=== PATIENT | female | born 1960 | race Caucasian/White ===

== ENCOUNTER 2016-09-08 19:43 | Emergency (ER) | payer SELFPAY ==
[2016-09-08] MEDS ORDERED: ONDANSETRON INJ 4 MG/2 ML VIAL IV ONE (19:59)
[2016-09-08] MEDS ORDERED: KETOROLAC TROMETHAMINE INJ 30 MG/ML VIAL IV ONE (20:10)
[2016-09-08] MEDS ORDERED: SODIUM CHLORIDE 0.9% 1000ML 1,000 ML IVS ONE (20:10)
--- NOTE | 2016-09-08 20:24 | ED.PDOC ---
History of Present Illness - General Chief Complaint: Abdominal Pain Stated Complaint: abdomen pain Time Seen by Provider: 09/08/16 20:09 Information Source: patient, RN notes reviewed, Vital Signs reviewed Exam Limitations: no limitations - History of Present Illness Initial Comments: Patient comes in with c/o RUQ/flank pain that started acutely ~ 1.5 hours prior to arrival. Pain is achy and sharp. + nausea and anorexia. Earlier in the day she was in her usual state of health. Abdominal Pain Onset Location: RUQ, flank - right Pain Radiation: flank - Right Quality: moderate, aching, sharpness, waxing/waning Timing/Duration: 1-3 hours Improving Factors: nothing Worsening Factors: nothing Associated Symptoms: diarrhea - Residual from gastroenteritis last week, nausea/ vomiting Review of Systems - Review of Systems Constitutional: States: no symptoms reported EENTM: States: no symptoms reported Respiratory: States: no symptoms reported Cardiology: States: no symptoms reported Gastrointestinal/Abdominal: States: see HPI Genitourinary: States: no symptoms reported Musculoskeletal: States: back pain - R flank Skin: States: no symptoms reported Neurological: States: no symptoms reported All other Systems: No Change from Baseline Past Medical History (General) - Patient Medical History Hx Asthma: No Hx Cardiac Disorders: No Hx Hypertension: No Hx Thyroid Disease: Yes - hypo Hx Diabetes: No - Vaccination History Hx Tetanus, Diphtheria Vaccination: No Hx Influenza Vaccination: No Hx Pneumococcal Vaccination: No - Social History Hx Tobacco Use: No - Female History Patient : No Family Medical History - Family History Mother Family History: Unknown Living Status: Unknown Physical Exam - Physical Exam General Appearance: Alert, Ill Appearing - in obvious pain, Well Developed, Well Groomed, Well Hydrated, Well Nourished Neck: non-tender, full range of motion, supple, normal inspection Respiratory: chest non-tender, lungs clear, normal breath sounds, no respiratory distress, no accessory muscle use Cardiovascular/Chest: regular rate, rhythm, no edema, no gallop, no JVD, no murmur Gastrointestinal/Abdominal: soft, abnormal bowel sounds - decreased, tenderness - RUQ w/o rebound or guarding Back Exam: CVA tenderness (R) Extremity: normal inspection Neurologic: alert, normal mood/affect, oriented x 3 Skin Exam: normal color, warm/dry Comments: Vital Signs 09/08/16 09/08/16 19:50 20:07 Temperature 98.6 F Pulse Rate [ 108 H 108 H right radial] Respiratory 22 22 Rate Blood Pressure 142/82 [Right Arm] O2 Sat by Pulse 98 Oximetry Progress - Progress Progress: 09/08/16 21:23 Pain is improved. Will d/c home with Rx for Toradol since she is allergic to Codeine and Hydrocodone. Discussed increased risk of GI bleeding and to use judiciously and take with food. - Results/Orders Results/Orders: Laboratory Last Values WBC 10.5 K/mm3 (4.8-10.8) 09/08/16 20:05 RBC 4.94 M/mm3 (4.20-5.40) 09/08/16 20:05 Hgb 13.0 gm/dL (12.0-16.0) 09/08/16 20:05 Hct 39.8 % (36.0-47.0) 09/08/16 20:05 MCV 80.5 fl (81.0-99.0) L 09/08/16 20:05 MCH 26.3 pg (27.0-31.0) L 09/08/16 20:05 MCHC 32.7 g/dL (33.0-37.0) L 09/08/16 20:05 RDW 13.4 % (11.5-14.5) 09/08/16 20:05 Plt Count 394 K/mm3 (130-400) 09/08/16 20:05 MPV 7.9 fl (7.40-10.4) 09/08/16 20:05 Absolute Neuts (auto) 5.70 K/uL (1.8-6.8) 09/08/16 20:05 Absolute Lymphs (auto) 3.50 K/uL (1.0-3.4) H 09/08/16 20:05 Absolute Monos (auto) 1.30 K/uL (0.2-0.8) H 09/08/16 20:05 Absolute Eos (auto) 0.10 K/uL (0.0-0.4) 09/08/16 20:05 Absolute Basos (auto) 0.00 K/uL (0.0-0.1) 09/08/16 20:05 Neutrophils % 53.9 % (42.0-78.0) 09/08/16 20:05 Lymphocytes % 33.0 % (20.0-50.0) 09/08/16 20:05 Monocytes % 11.9 % (2.0-9.0) H 09/08/16 20:05 Eosinophils % 0.8 % (1.0-5.0) L 09/08/16 20:05 Basophils % 0.4 % (0.0-2.0) 09/08/16 20:05 Sodium 141 mmol/L (135-145) 09/08/16 20:05 Potassium 3.7 mmol/L (3.6-5.0) 09/08/16 20:05 Chloride 106 mmol/L (101-111) 09/08/16 20:05 Carbon Dioxide 25 mmol/L (21-31) 09/08/16 20:05 Anion Gap 13.7 (12-18) 09/08/16 20:05 BUN 16 mg/dL (7-18) 09/08/16 20:05 Creatinine 0.78 mg/dL (0.6-1.3) 09/08/16 20:05 BUN/Creatinine Ratio 20.5 (10-20) H 09/08/16 20:05 Random Glucose 108 mg/dL (70-105) H 09/08/16 20:05 Serum Osmolality 283.0 mOsm/L (275-295) 09/08/16 20:05 Calcium 9.9 mg/dL (8.4-10.2) 09/08/16 20:05 Total Bilirubin 0.8 mg/dL (0.2-1.0) 09/08/16 20:05 AST 32 IU/L (10-42) 09/08/16 20:05 ALT 27 IU/L (10-60) 09/08/16 20:05 Alkaline Phosphatase 81 IU/L (42-121) 09/08/16 20:05 Serum Total Protein 7.6 gm/dL (6.4-8.2) 09/08/16 20:05 Albumin 4.5 g/dl (3.2-5.5) 09/08/16 20:05 Globulin 3.1 gm/dL (2.3-3.5) 09/08/16 20:05 Albumin/Globulin Ratio 1.5 (1.1-1.9) 09/08/16 20:05 Amylase 91 U/L (28-100) 09/08/16 20:05 Lipase 40 U/L (22-51) 09/08/16 20:05 Urine Color Yellow (Yellow) 09/08/16 20:10 Urine Appearance Clear (Clear) 09/08/16 20:10 Urine pH 5.5 (4.5-7.8) 09/08/16 20:10 Ur Specific [place] >= 1.030 (1.005-1.030) 09/08/16 20:10 Urine Protein Negative mg/dL 09/08/16 20:10 Urine Glucose (UA) Negative mg/dL (Negative) 09/08/16 20:10 Urine Ketones Negative mg/dL (NEGATIVE) 09/08/16 20:10 Urine Blood Small (Negative) H 09/08/16 20:10 Urine Nitrite Negative 09/08/16 20:10 Urine Bilirubin Negative (NEGATIVE) 09/08/16 20:10 Urine Urobilinogen 0.2 mg/dL (0.2-1.0) 09/08/16 20:10 Ur Leukocyte Esterase Negative (Negative) 09/08/16 20:10 Urine RBC 1-3 /hpf 09/08/16 20:10 Urine WBC 1-3 /hpf 09/08/16 20:10 Ur Epithelial Cells 1-3 /hpf 09/08/16 20:10 Urine Bacteria Rare 09/08/16 20:10 Urine Mucus Small 09/08/16 20:10 - EKG/XRAY/CT EKG: Sinus, no ST T wave changes CT Ordered: Yes - R hydronephrosis and hydroureter, 2mm calculus in bladder. Departure - Departure Clinical Impression: Hydronephrosis of right kidney, Hydroureter on right, Kidney calculus Time of Disposition: 21:25 Disposition: Discharge to Home or Self Care Condition: Good Departure Forms: ED Discharge - Pt. Copy, Patient Portal Self Enrollment Instructions: DI for Kidney Stones Diet: resume usual diet, other - Increase water/fluid intake Activity: increase activity as tolerated Referrals: JUDY BARON IV, [facility] [Primary Care Provider] - 1-5 Days Prescriptions: Ketorolac Tromethamine [Toradol Tabs] 10 mg PO Q6HR PRN #10 tab PRN Reason: Moderate To Severe Pain Home Medications: Ambulatory Orders Thyroid [[place] Thyroid] 120 mg PO DAILY 05/03/16 Ketorolac Tromethamine [Toradol Tabs] 10 mg PO Q6HR PRN #10 tab 09/08/16
--- NOTE | 2016-09-08 20:51 | CT ---
EXAM: Abdoment/Pelvis w/o Contrast CLINICAL INDICATION: 55-year-old female with RIGHT upper quadrant/flank pain. History of cholecystectomy. COMPARISON: None. EXAMINATION: CT of the abdomen and pelvis was performed without intravenous or oral contrast. Multiplanar reformatted images were provided. This exam was performed according to our departmental dose optimization program which includes use of automated exposure control, adjustment of the mA and/or kV according to patient size and/or use of iterative reconstruction technique. FINDINGS: Evaluation of solid organ pathology is limited secondary to lack of intravenous contrast. Within these limitations, the following observations are made. Chest: Evaluation through the lung bases reveals no focal opacity, pleural effusion or pneumothorax. Heart size is within normal limits. No pericardial effusion. Abdomen and pelvis: The liver, pancreas, spleen, LEFT kidney and bilateral adrenal glands are within normal limits. Surgical clips at the level of the gallbladder fossa status post cholecystectomy. The RIGHT kidney reveals hydronephrosis and hydroureter to the level of the distal ureter secondary to 2 mm calculus present within the dependent bladder. The vessels are normal in caliber. No abdominopelvic lymph nodes are noted to be pathologically enlarged by CT measurement criteria. The bowel is within normal limits with extensive fecal debris present throughout the large bowel. There is no abnormal bowel wall thickness or bowel dilation. No free air. No free abdominopelvic fluid collections. The appendix is within normal limits. The osseous structures reveal degenerative change of the lower lumbar spine L4-5 and L5-S1 levels. IMPRESSION: 1. The RIGHT kidney reveals hydronephrosis and hydroureter to the level of the distal ureter secondary to 2 mm calculus present within the dependent bladder. Electronically signed by: Delores Morris MD 09/08/2016 8:49 PM CDT Workstation: [id number]
[2016-09-08] MEDS ORDERED: KETOROLAC TROMETHAMINE 10 MG TAB PO ONE (21:24)
[2016-09-08] MEDS ORDERED: HYDROmorphone HCL INJ 2 MG/ML VIAL IV ONE (21:31)
[2016-09-08 21:44] VITALS: BP 131/76; TEMP 98.4; O2SAT 99
== END 2016-09-08 21:45 | disposition home or self-care (01) ==
LOC: ER 19:43
DX: N13.2 Hydronephrosis with renal and ureteral calculous obstruction (principal); E03.9 Hypothyroidism, unspecified; Z88.6 Allergy status to analgesic agent
CPT/HCPCS: 36415; 74176; 80053; 81001; 82150; 83690; 85025; 93005; J1170; J1885; J2405; J7030

== ENCOUNTER → 2017-10-20 | Outpatient (CLI) | payer OTHER ==
--- NOTE | 2017-10-20 21:06 | CT ---
EXAM DESCRIPTION: Abdomen/Pelvis w/wo Contrast: Computed Tomography. CLINICAL HISTORY: ULCERATIVE COLITIS; ABDOMINAL PAIN COMPARISON: CT scan of the abdomen and pelvis without IV contrast 09/08/2016 TECHNIQUE: Spiral-axial scans at 5.0 x 5.0 mm intervals through the abdomen and pelvis before and after standard dose nonionic IV contrast. No oral contrast. Coronal and sagittal 2.0 mm reconstructions. 5 mm Delayed helical-axial scans, liver through the pubic symphysis. No adverse reactions. Total Exam DLP 1520.06 mGy - cm. This exam was performed according to our departmental CT dose-optimization program which includes automated exposure control, adjustment of the mA and/or kV according to patient size and/or use of iterative reconstruction technique; to reduce radiation dose to as low as reasonably achievable (ALARA). FINDINGS: Lung bases and pleura: Negative. Liver, Stomach, Spleen, Adrenal Glands: Stomach is well-distended. Solid organs are negative. Pancreas, Gallbladder, Ducts: Surgical clips in the gallbladder fossa. No fluid. Interval dilation of the common bile duct. Stable subcentimeter fatty lesion in the body of the pancreas near the head. Kidneys and Ureters: Unremarkable. Mesentery: Minimal to trace amount of stranding around the thickened wall segments of the colon as described below. No free air or free fluid. Aorta: Normal outer caliber and luminal caliber. Minimal atherosclerotic calcification. Small Bowel: Unremarkable. Terminal Ileum/Cecum: Normal caliber. Appendix not seen. Colon: Fecal material proximal. In the proximal mid transverse colon, is a 1.0 - 1.5 cm segment of thickened wall and narrowing of the lumen axial series 2, image 62. The outer wall diameter is 1.5 cm. Minimal density of the surrounding fat. Distal to the narrowing, Intermittent wall thickening and luminal narrowing is seen extending to the splenic flexure. Coronal series 601, image 49. In the descending colon, intermittent short and medium length segments of the same wall thickening, luminal narrowing, and outer wall diameter decrease. The sigmoid colon is redundant and the distal two thirds shows somewhat smooth eng with enhancement, thickening and luminal narrowing; the outer wall diameter is relatively consistent in these segments. Minimal dilation of the rectum in a symmetric thickening of the left wall. Minimal density of fat surrounding the narrowed segments with thickened eng of the descending colon and sigmoid. Pelvic Organs: Urinary bladder. Vaginal cuff unremarkable. Increased density in the fat surrounding the sigmoid segments as described above. No free fluid. Spine and Bony Pelvis: Spondylosis L4-5 and L5-S1. Abdominal Wall/Back Soft Tissues: Unremarkable. IMPRESSION: Multiple lesions are noted in the colon with mucosal thickening and enhancement, narrowing of the lumen, and overall narrowing of the outer diameter of the involved colon segments. Improvement is noted in the ascending colon and proximal transverse colon. Distal transverse colon is stable, and also in the descending colon. Disease appears to be progressing in the sigmoid colon. Eccentric wall thickening was noted in the rectum on the left on the prior study as well. Electronically signed by: Luis De Souza MD 10/20/2017 9:05 PM CDT
== END ==
LOC: CT 07:44
DX: K51.90 Ulcerative colitis, unspecified, without complications (principal); R10.84 Generalized abdominal pain

== ENCOUNTER → 2017-10-29 | Outpatient (CLI) | payer OTHER | LOC: LAB.O 11:05 | DX: K52.89 Other specified noninfective gastroenteritis and colitis (principal); R19.4 Change in bowel habit ==

== ENCOUNTER → 2017-11-21 | Outpatient (CLI) | payer OTHER | LOC: LAB.NP 09:18 | DX: A04.72 Enterocolitis due to Clostridium difficile, not specified as recurrent (principal) ==

== ENCOUNTER → 2019-02-28 | Outpatient (CLI) | payer OTHER ==
--- NOTE | 2019-03-01 11:35 | MRI ---
Study: MRI of the Left Shoulder. Indication: STRAIN OF MUSCLE OF LEFT SHOULDER Technique: Multiplanar, multi sequence MRI of the left shoulder was obtained without intravenous contrast. Comparison: None. Findings: Moderate hypertrophic AC joint osteoarthritis. Type I acromion with moderate lateral downsloping. Moderate volume subacromial/subdeltoid bursal fluid. High-grade supraspinatus and infraspinatus tendinosis with irregular low to intermediate grade interstitial tearing throughout both tendon insertions. Subtle areas of bursal surface extension suspected and the conjoined tendon insertion. No full-thickness rupture or significant tendon retraction. Subscapularis and teres minor tendons intact. Mild atrophy and grade 1 fatty infiltration rotator cuff musculature. Intracapsular long head biceps tendinosis. Circumferential labral truncation/degeneration. Minimal glenohumeral joint osteoarthritis. No acute fracture. Impression: Supraspinatus and infraspinatus tendinosis with irregular low to intermediate grade interstitial tearing throughout both tendon insertions and likely areas of bursal surface extension. Mild atrophy and grade 1 fatty infiltration rotator cuff musculature. Intracapsular long head biceps tendinosis. Circumferential labral truncation and degeneration. Minimal glenohumeral joint osteoarthritis. Moderate hypertrophic AC joint osteoarthritis. Moderate volume subacromial/subdeltoid bursal fluid. Electronically signed by: Hill Liu MD 03/01/2019 11:34 AM FIELD SERVICE CONSULTANT
== END ==
LOC: MRI 14:00
PROVIDERS: ATTEND Nurse Practitioner Family
DX: S46.912A Strain of unspecified muscle, fascia and tendon at shoulder and upper arm level, left arm, initial encounter (principal); M75.82 Other shoulder lesions, left shoulder; M75.22 Bicipital tendinitis, left shoulder; M62.512 Muscle wasting and atrophy, not elsewhere classified, left shoulder; M19.012 Primary osteoarthritis, left shoulder

== ENCOUNTER → 2019-05-03 | Outpatient (CLI) | payer OTHER ==
--- NOTE | 2019-05-03 13:00 | CT ---
EXAM DESCRIPTION: Abdomen/Pelvis w/Contrast CLINICAL HISTORY: 58 years Female, RLQ PAIN TECHNIQUE: This exam was performed according to our departmental dose-optimization program, which includes automated exposure control, adjustment of the mA and/or kV according to patient size and/or use of iterative reconstruction technique. COMPARISON: October 20, 2017 FINDINGS: Visualized lung bases are grossly unremarkable. Hepatic steatosis. No suspicious hepatic lesion. No biliary dilatation. Cholecystectomy. Portal vein is patent. The spleen, pancreas and adrenal glands are unremarkable. Symmetric renal parenchymal enhancement. No hydronephrosis. Unremarkable bladder. Scattered colonic diverticula without focal inflammatory change. No evidence of bowel obstruction. Normal appendix. Acute uncomplicated terminal ileitis. No adenopathy. No focal fluid collection. No free air. Normal caliber abdominal aorta. No acute or suspicious osseous abnormality. Scattered degenerative changes present. IMPRESSION: Acute uncomplicated terminal ileitis. Normal appendix. Electronically signed by: Ethan Walter MD 05/03/2019 12:58 PM CDT
== END ==
LOC: CT 12:15
PROVIDERS: ATTEND Physician Assistant
DX: K52.9 Noninfective gastroenteritis and colitis, unspecified (principal)

== ENCOUNTER → 2019-10-02 | Outpatient (CLI) | payer OTHER | LOC: GMAJ 17:02 | PROVIDERS: ATTEND Family Medicine | DX: Z00.00 Encounter for general adult medical examination without abnormal findings (principal) ==

== ENCOUNTER → 2019-10-22 | Outpatient (CLI) | payer OTHER ==
--- NOTE | 2019-10-23 16:37 | MAM ---
EXAM DESCRIPTION: 3D Screening BILATERAL : Digital Mammography. CLINICAL HISTORY: 58 years Female SCREENING . No complaints. No family history breast cancer. Menarche age 9. Childbirth age 22. Hysterectomy age 27. HRT 5 or more years ago.. Lifetime risk of developing breast cancer (Tyrer-Cuzick model)(%): 7.2. COMPARISON: 2-D digital screening bilateral mammography December 2014.. No prior reports available. TECHNIQUE: Bilateral CC and MLO projection full-field images, digital tomosynthesis mammographic technique. Bilateral digital 2-D full-field MLO images. CAD available for 2-D images. FINDINGS: The breast parenchymal density pattern is: Scattered areas of fibroglandular density. No skin thickening or nipple retraction. Small mass density incompletely circumscribed approximately 5 mm in diameter middle third of the upper-outer quadrant at 11:00-11:30, 5.8 cm from the nipple. No new focal, stellate mass or density, focal asymmetry , and no suspicious microcalcifications right breast. IMPRESSION: BI-RADS CATEGORY: 0 - INCOMPLETE- Need additional imaging evaluation. RECOMMENDATIONS: FOLLOW-UP: Recall for additional imaging: Directed left breast ultrasound region of interest. Optional diagnostic left breast tomosynthesis depending on ultrasound findings.. Written communication concerning the IMPRESSION and Follow-up, will be mailed to the patient and referring health care provider. Electronically signed by: Luis De Souza MD 10/23/2019 4:35 PM CDT
== END ==
LOC: MAMMO 15:22
PROVIDERS: ATTEND Family Medicine
DX: Z12.31 Encounter for screening mammogram for malignant neoplasm of breast (principal)

== ENCOUNTER → 2019-11-01 | Outpatient (CLI) | payer OTHER ==
--- NOTE | 2019-11-01 19:11 | US ---
EXAM DESCRIPTION: Breast,Left: Ultrasound. CLINICAL HISTORY: 58 yearsFemaleOTHER ABNORMAL AND INCONCLUSIVE FINDINGS ON DX IMAGING BREAST small mass density left breast COMPARISON: Bilateral screening digital breast tomosynthesis October 21. TECHNIQUE: Transcutaneous scanning of the left breast utilizing ledesma-scale and Doppler modes. Scanning performed by the director employee safety and health ; observation by Dr. De Souza. FINDINGS: Scanning 6 cm from the nipple at the 11:00 region. Small hypoechoic structure with echogenic margin. Wider than tall orientation with mixed posterior acoustic enhancement. Nonvascular. Dimensions are 5.6 x 4.5 mm. Consistent with a lymph node. No distinct cyst or dominant solid mass. No fluid collection or large calcifications. No overlying skin changes. IMPRESSION: Benign exam. BIRAD CATEGORY: 2 BENIGN FINDINGS. RECOMMENDATIONS: FOLLOW UP: Routine digital bilateral mammographic screening, one year interval from October 2019. Written communication explaining the IMPRESSION and follow-up, will be mailed to the patient and referring health care provider. The FINDINGS and the FOLLOW-UP plan were reviewed in person with the patient after the examination. According to the [employer], yearly mammograms are recommended starting at age 40 and continuing as long as a woman is in good health. Any breast change noted on a breast self-exam should be reported promptly to the patient's healthcare provider. Breast MRI is recommended for women with an approximately 20-25% or greater lifetime risk of breast cancer, including women with a strong family history of breast or ovarian cancer and women who have been treated for Hodgkin's disease. A negative mammographic report should not delay tissue diagnosis in patients with significant clinical history or physical findings. Extremely dense breast tissue limits the sensitivity of digital mammography. Electronically signed by: Luis De Souza MD 11/01/2019 7:09 PM CDT
== END ==
LOC: US 09:03
PROVIDERS: ATTEND Family Medicine
DX: R92.8 Other abnormal and inconclusive findings on diagnostic imaging of breast (principal)

== ENCOUNTER → 2019-11-29 | Outpatient (CLI) | payer OTHER | LOC: LAB.O 09:11 | PROVIDERS: ATTEND Dermatology Dermatopathology | DX: L29.0 Pruritus ani (principal); R21 Rash and other nonspecific skin eruption ==

== ENCOUNTER → 2020-02-13 | Outpatient (CLI) | payer OTHER | LOC: GMAJ 14:02 | PROVIDERS: ATTEND Family Medicine | DX: E03.8 Other specified hypothyroidism (principal); Z79.899 Other long term (current) drug therapy; E78.2 Mixed hyperlipidemia ==

== ENCOUNTER → 2020-03-05 | Outpatient (CLI) | payer OTHER | LOC: GMAJ 14:21 | PROVIDERS: ATTEND Family Medicine | DX: M25.519 Pain in unspecified shoulder (principal) ==